=== PATIENT | male | born 1990 | race Caucasian/White ===

== ENCOUNTER 2018-06-17 14:40 | Emergency (ER) | payer OTHER ==
[2018-06-17 14:54] VITALS: BP 134/73
[2018-06-17] MEDS ORDERED: LIDOCAINE 1% INJ-PF (10 MG/ML) 30 ML SDV INJ ONE (15:39)
--- NOTE | 2018-06-17 16:02 | RADIOLOGY REPORT (SQ) ---
EXAM DESCRIPTION: FINGER RIGHT COMPLETED DATE/TIME: 06/17/2018 3:49 pm REASON FOR STUDY: THUMB LACERATION WITH SAW COMPARISON: None. NUMBER OF VIEWS: Three views. TECHNIQUE: AP, lateral, and oblique images acquired of the right thumb. LIMITATIONS: None. FINDINGS: MINERALIZATION: Normal. BONES: No acute fracture or dislocation. No worrisome bone lesions. SOFT TISSUES: Small soft tissue defect overlying in the volar surface of the distal thumb phalanx. N o radiopaque foreign body. No dissecting subcutaneous gas. OTHER: No other significant finding. IMPRESSION: Small laceration overlying the distal thumb. No acute fracture or dislocation. COMMENT: SITE OF TRAUMA/COMPLAINT MARKED/STAMP COMPLETED: YES. TECHNICAL DOCUMENTATION: JOB ID: [id number] [employer]- All Rights Reserved Reading location - IP/workstation name: [email or web address]
--- NOTE | 2018-06-17 16:16 | ER Document Report ---
HPI - HPI Pain Level: 2 Notes: Patient is a 28-year-old male who presents with chief complaint of laceration to his left thumb. Patient reports he was cutting with a saw obtained the laceration. This happened just prior to arrival. Patient denies any other symptoms. Patient reports tetanus up-to-date. Past Medical History - General Information source: Patient - Social History Smoking Status: Never Smoker Chew tobacco use (# tins/day): No Frequency of alcohol use: Occasional Drug Abuse: None Family History: Reviewed & Not Pertinent Patient has suicidal ideation: No Patient has homicidal ideation: No - Medical History Medical History: Negative Renal/ Medical History: Denies: Hx Peritoneal Dialysis Surgical Hx: Negative - Immunizations Immunizations up to date: Yes Hx Diphtheria, Pertussis, Tetanus Vaccination: Yes Vertical Provider Document - CONSTITUTIONAL Notes: PHYSICAL EXAMINATION: GENERAL: Well-appearing, well-nourished and in no acute distress. HEAD: Atraumatic, normocephalic. EYES: Pupils equal round extraocular movements intact, conjunctiva are normal. ENT: Nares patent NECK: Normal range of motion LUNGS: No respiratory distress Musculoskeletal: Normal range of motion NEUROLOGICAL: Normal speech, normal gait. PSYCH: Normal mood, normal affect. SKIN: Warm, Dry, normal turgor, no rashes or lesions noted. 2 cm superficial laceration noted to patient's right thumb. Approximates well. No active bleeding noted at this time. Course - Re-evaluation Re-evalutation: X-rays negative for any acute findings to include fracture or dislocation. Laceration was repaired under sterile technique, see procedure note. - Vital Signs Vital signs: Temp Pulse Resp BP Pulse Ox 98 F 56 L 16 134/73 H 98 06/17/18 14:53 06/17/18 14:53 06/17/18 14:53 06/17/18 14:53 06/17/18 14:53 Procedures - Laceration/Wound Repair Left thumb Wound length (cm): 2 Wound's Depth, Shape: Superficial Laceration pre-procedure: Sterile PPE donned Anesthetic type: 1% Lidocaine Wound explored: Clean, No foreign body removed Wound Debrided: Minimal Wound Repaired With: Sutures Suture Size/Type: 5:0 Number of Sutures: 4 Discharge - Discharge Clinical Impression: Laceration Condition: Stable Disposition: HOME, SELF-CARE Additional Instructions: Laceration Care Your laceration has been sutured to keep the skin edges aligned during healing. The time of suture removal depends on the nature and location of your cut. Please follow the care instructions the doctor has outlined for you and return for further care, according to the schedule you've been given. Keep the wound and dressing clean. Unless you were told otherwise, you may shower daily, blotting the wound dry with a clean, unused towel. At other times, If the dressing gets wet or blood soaked, remove it and blot the wound dry, then reapply a new dressing. Unless you were instructed otherwise, dressings should be changed at least daily. If any signs of infection occur (swelling, redness, increasing tenderness, red streaks, tender lumps in the armpit or groin above the laceration, or fever) , see the doctor immediately. Please return to the emergency department or your primary care provider in 12-14 days for suture removal. Please return earlier if you develop any signs of infection such as increased redness, swelling, foul-smelling drainage or fever. Prescriptions: Cephalexin [Cephalexin 500 MG Capsule] 1 cap PO QID #28 cap
== END 2018-06-17 16:35 | disposition home or self-care (01) ==
LOC: ER 14:40
DX: S61.012A Laceration without foreign body of left thumb without damage to nail, initial encounter (principal); W27.8XXA Contact with other nonpowered hand tool, initial encounter
CPT/HCPCS: 99283; 73140; 12001; J3490